=== PATIENT | female | born 1985 | race Two or more races ===

== ENCOUNTER 2023-11-02 16:11 | Emergency (ER) | payer MEDICAID, OTHER ==
[2023-11-02 18:09] LABS: Urine Bacteria FEW /hpf (None Seen); Urine Blood Negative /uL (Negative); Urine Clarity Turbid (Clear); Urine Color Light-Yellow (Yellow); Urine Protein, UAD Negative (Negative); Urine Specific Gravity 1.012 (1.001-1.035); Urine Urobilinogen Normal (Negative); Urine WBC 8 /hpf (0 - 5)
[2023-11-02] MEDS ORDERED: SULF800T23 PO (20:59)
[2023-11-02 21:12] VITALS: BP 125/79; PULSE 98; RESP 18; TEMP 98; O2SAT 97
[2023-11-02] MEDS: cefTRIAXone SOD 1,000 MG VL IM ONE (21:30)
[2023-11-02] MEDS: FLUCONAZOLE 100 MG TAB PO ONE (21:31)
[2023-11-02 22:19] LABS: Vaginal Trichomonas Not Present
[2023-11-02 22:21] LABS: Vaginal Bacteria Few; Vaginal Clue Cells None Seen; Vaginal Epithelial Cells Few
== END 2023-11-02 22:40 | disposition home or self-care (01) ==
LOC: ER 16:11
DX: N39.0 Urinary tract infection, site not specified (principal); B37.31 Acute candidiasis of vulva and vagina; N89.8 Other specified noninflammatory disorders of vagina; Z90.49 Acquired absence of other specified parts of digestive tract; Z32.02 Encounter for pregnancy test, result negative
CPT/HCPCS: 81001; 81025; 87210; 96372; 99283; J0696